=== PATIENT | male | born 1965 | race Caucasian/White ===

== ENCOUNTER 2017-01-22 18:30 | Inpatient (IN) | payer MEDICAID ==
--- NOTE | 2017-01-22 18:30 | PCM.SN ---
- Free Text/Narrative Note: 51 year old male, prisoner at the [facility]. Arrived in [place] today for court/legal matters. 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 Underwent resection and reanastomosis. Had RT and CTX. Now has had several episodes of SBO, most recent episode 2 weeks ago. Hospitalized in [place]. Had NGT decompression. Travelled from [place] to [place] today, arriving at 1432. When supper was brought to him at 1720, he told officer that he couldn't eat because "I have a bowel obstruction." Will be transported to hospital for further evaluation.
[2017-01-22] MEDS ORDERED: Acetaminophen 650 MG Supp RECTAL PRN (19:26)
[2017-01-22] MEDS ORDERED: Sodium Chloride 0.9% 10 ML Syringe FLUSH PRN (19:26)
[2017-01-22] MEDS ORDERED: Bisacodyl 10 MG Supp RECTAL PRN (19:26)
[2017-01-22] MEDS ORDERED: BENZOIN TINCTURE TOP ONE (19:45)
[2017-01-22] MEDS ORDERED: HYDROmorphone 1 MG/ML Syringe IM ONE (21:00)
[2017-01-22] MEDS: D5 1/2 NS w/ 20 mEq/L KCl 1,000 ML IV SCH (21:15)
[2017-01-22] MEDS: Ondansetron 4 MG/2 ML SDV IV PRN (21:30)
[2017-01-22 21:46] LABS: CHLORIDE,CL 103 mmol/L (101-111); SODIUM,NA 138 mmol/L (135-145)
[2017-01-22] MEDS: HYDROmorphone 1 MG/ML Syringe IVPUSH PRN (21:58)
[2017-01-23] MEDS: Lidocaine 2% Jelly 5 ML Tube MUCMEM SCH ×4 (00:06→07:34)
[2017-01-23] MEDS: HYDROmorphone 1 MG/ML Syringe IVPUSH PRN ×4 (01:03→10:47)
--- NOTE | 2017-01-23 02:40 | HP ---
CHIEF COMPLAINT: Abdominal pain. REASON FOR ADMISSION: Recurrent small-bowel obstruction. HISTORY OF PRESENT ILLNESS: Mr. Wilson is a 51-year-old gentleman, who is an inmate at the [facility] in [place]. He was brought to [place] today for a court hearing. He arrived at about 14:30 in the afternoon, and at about 17:30, when the evening meal was brought, he stated that he could not eat because "I have a bowel obstruction." Mr. Wilson stated that he had been scheduled to see the medical stenographer this morning in [place], but his transport team arrived to bring him to [place] before he could be seen. He apparently did not tell them before he left that he was not feeling well. PAST MEDICAL HISTORY: Significant for the fact that in October 2015, he was noted to have developed anemia and was quite iron deficient. A colonoscopy was scheduled. This was performed in [place]. He was found to have colorectal cancer, and biopsy showed it to be an adenocarcinoma. He underwent surgical resection with reanastomosis. This was followed by radiation and chemotherapy. He now has had at least several episodes of what appeared to be partial small-bowel obstructions. His most recent admission was to [facility] in [place] for a small-bowel obstruction 2 weeks ago. PAST MEDICAL HISTORY: Colorectal adenocarcinoma, 10/18/2015. Degenerative joint disease of the lumbar spine. Hypertension, on no meds at this time. Chronic bilateral low back pain with occasional left-sided sciatica, constipation, COPD, dyslipidemia, obstructive sleep apnea. In the past, he was diagnosed with diabetes, but he is on no medications at this time and blood sugars are normal. PAST SURGICAL HISTORY: Umbilical hernia repair as an adult. Colonoscopy with biopsy in October 2015, which led to the diagnosis of adenocarcinoma. Colon resection on 11/19/2015; a low-anterior rectal sigmoid resection was performed with a diverting loop ileostomy. Three out of 17 lymph nodes were positive, and he was told his cancer was a stage IIIB. He underwent subsequent radiation and chemotherapy. Repeat diagnostic colonoscopy was performed on 06/03/2016. An upper endoscopy was performed at the same time. IMMUNIZATION HISTORY: Up-to-date. SOCIAL HISTORY: He grew up in the [facility]. 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 He is single, has no children. He smoked until recently, 2 packs of cigarettes a day for 20 years. He stated alcohol was never a problem for him. He did no service. FAMILY HISTORY: His mother had breast cancer and has survived more than 10 years. Father at the age of 75 of myocardial infarction. He also had diabetes. He has 1 brother and 1 sister. The brother also had coronary artery disease and had a 4-vessel CABG, but is said to be doing well. REVIEW OF SYSTEMS: Last small-bowel obstruction was 2 weeks ago, and he was hospitalized at [facility]. His last bowel movement was yesterday, January 21. He said that these symptoms began last night before he came to [place]. His abdomen is distended. He is not passing gas. He has slight nausea, but no vomiting. No blood by mouth or rectum. No hematuria. No recent changes in vision or hearing. No swallowing difficulties. No chest pain, shortness of breath, orthopnea. No recent falls or injuries. CURRENT MEDICATIONS: 1. Xarelto 20 mg daily. 2. Vitamin D 50,000 units once a week. 3. Pramipexole 1 mg at bedtime. 4. Pantoprazole 40 mg daily. 5. Senna 8.6 mg one tablet every morning as needed. 6. Loratadine 10 mg daily as needed. 7. Simethicone 80 mg chewable tablets 3 times a day as needed. 8. Acetaminophen 650 mg every 6 hours p.r.n. for pain. ALLERGIES: Fenofibrate. PHYSICAL EXAMINATION: General: He is a pleasant gentleman, accompanied by a housing officer. He is cooperative, articulate and garrulous. He obviously is uncomfortable because of the abdominal pain, but is in no acute distress and is able to maintain his composure throughout the interview and exam, although he obviously became more uncomfortable as time went by. Vital Signs: Blood pressure 142/79 on the left, 132/86 on the right, pulse 75 and regular, respiratory rate 20, oxygen saturation 97% on room air, temperature 98.9, height 6 feet 4 inches, weight 271 pounds 14 ounces. HEENT: Unremarkable. ENT is clear. Sclerae are nonicteric. Mouth shows moist mucous membranes. Neck: No JVDs or bruits: Chest: Shows clear but diminished bilateral breath sounds. Heart: Shows regular rate and rhythm. Abdomen: Distended with completely absent bowel sounds. Extremities: Show the calves to be soft and nontender. There is trace anterior tibial edema. Neurological: There are no gross motor or sensory deficits. LABORATORY DATA: CBC, comprehensive panel, amylase and lipase ordered. White count is 7.5 with 84% neutrophils. Hemoglobin and hematocrit were normal at 16 and 46 with an MCV of 87. Electrolytes were normal. BUN and creatinine were 14 and 0.6 with a GFR of more than 60. LFTs within normal limits, and amylase and lipase were normal. A noncontrast CT scan of the abdomen and pelvis was performed. The lower thorax was unremarkable. The visualized organs of the abdomen and pelvis were unremarkable. There is mild dilatation of the stomach with fluid, and there were multiple proximal dilated small bowel loops reaching 3.8 cm in caliber. The distal small bowel is fluid-filled, slightly less distended than the proximal loops. There are gas and stool present within the colon. Anastomotic sutures are seen on the right side of the abdomen. Appendix was normal. IMPRESSION: A dilated small bowel which could represent ileus or an early or partial small bowel obstruction. Probable recurrent small bowel obstruction in this gentleman with a history of colon cancer with recurrent small bowel obstructions. The most recent of which was 2 weeks ago. PLAN: Mr. Wilson was made a direct admission as an acute inpatient. He will be kept n.p.o. except for ice chips. IV fluids were started with D5 half normal saline with 20 mEq of KCl per L. Orders were written for rectal Tylenol. He will receive Dilaudid 1 mg IV push every 3 hours p.r.n. There was a delay in getting IV access, and he was given 1 mg IM Dilaudid while he awaited. Orders were written also for ondansetron 4 mg IV every 4 hours p.r.n. for nausea, vomiting. PAOLO hose will be applied. Enoxaparin will be started tomorrow for VTE prophylaxis. After he was admitted to the floor, a nasogastric tube was passed, and we did get back about 500 mL of fluid which has since slowed down. We are going to see if the NG tube has to be repositioned later. He will be accompanied overnight by a housing officer. We will speak to the medical office at the [facility] tomorrow morning to decide how they would like to proceed. CONDITION AT THE TIME OF ADMISSION: Hemodynamically and neurologically stable. CODE STATUS: Full code. MD Chayito Physican for [facility] /[id number] MTDD
[2017-01-23] MEDS: Ondansetron 4 MG/2 ML SDV IV PRN ×2 (04:34→10:59)
[2017-01-23 06:46] VITALS: BP 119/80
[2017-01-23] MEDS: D5 1/2 NS w/ 20 mEq/L KCl 1,000 ML IV SCH (10:27)
[2017-01-23] MEDS ORDERED: Enoxaparin 40 MG/0.4 ML Syringe SUBCUT ONE (11:32)
--- NOTE | 2017-02-07 02:48 | DISCH ---
DISCHARGE DIAGNOSES: 1. Recurrent small bowel obstruction. 2. History of colorectal adenocarcinoma, in October 2015. 3. Hypertension, on no medications at this time. 4. Degenerative joint disease of lumbar spine. 5. Chronic low back pain. 6. Constipation. 7. Chronic obstructive pulmonary disease. 8. Dyslipidemia. 9. Obstructive sleep apnea by history. 10.Type 2 diabetes by history, diet controlled at this time. BRIEF HISTORY OF PRESENT ILLNESS: Mr. Wilson is a 51-year-old gentleman, who is an inmate at the [facility] in [place]. He was brought to [place] on the afternoon of [address] hearing. He arrived at approximately 1430 hours in the afternoon and was feeling well, but by 1730 hours when the evening meal was brought, he stated he could not eat because "I have a bowel obstruction." Mr. Wilson stated that he had been scheduled to see the medical support assistant at the [facility] that morning, but the transport team arrived to bring him to [place] before he could be seen, and he apparently did not inform them before he left that he was not feeling well. He was seen and examined and it was felt that he should be admitted for a possible recurrent small bowel obstruction. A CT scan of the abdomen and pelvis was subsequently obtained and showed changes consistent with either an early ileus or a partial small-bowel obstruction. He is admitted for further care. PERTINENT LABORATORIES AND X-RAYS: CBC at time of admission showed normal white count of 7.5, hemoglobin and hematocrit were 16 and 50, and platelets were 150,000. Chemistry showed normal electrolytes, BUN and creatinine of 14 and 0.6 with a GFR of more than 60. LFTs are within normal limits. Amylase and lipase were normal. A non-contrast CT scan of the abdomen and pelvis was obtained. Visualized portions of the lower lung were unremarkable. Visualized organs in the abdomen were unremarkable except as follows. There was mild dilatation of the stomach with fluid. There were multiple proximal dilated small bowel loops reaching 3.8 cm in caliber. The distal small bowel was fluid-filled. There was gas and stool within the colon. The anastomotic sutures on the right side of the abdomen were seen. The appendix was normal. The impression of the CAT scan was that of dilated small bowel, which could represent an ileus or an early/ partial small bowel obstruction. HOSPITAL COURSE: Mr. Wilson was admitted for management of his recurrent small bowel obstruction. In October 2015, he was diagnosed with colorectal cancer. He underwent resection of the colon with reanastomosis. This was followed by radiation and chemotherapy, and since that time, he has had several episodes of what appeared to be partial small-bowel obstructions. It is felt that he probably has a stricture at the site of the anastomosis, and apparently, there has been some discussion regarding possible future surgery to remove this area of the bowel. He was kept n.p.o. IV fluids were started with D5 half-normal saline with potassium. IV Dilaudid was used for pain control, 1 mg every 3 hours p.r.n. Enoxaparin was used for VTE prophylaxis. We discussed the placement of an NG tube with Mr. Wilson. He has had these before, and he understood the need for it. He allowed us to place an NG tube. Initially, we got back about 500 mL of fluid, and overnight, there was 200 mL out. We spoke with the medical surgery nurse at the [facility], Dr. Deniz Pedraza. He is very familiar with Mr. Wilson. We discussed the presentation, the clinical and radiographic findings, and his hospital course. It was felt that at this time, he was hemodynamically stable, and he could be returned to [place]. Therefore, the NG tube was removed. Mr. Wilson was kept n.p.o., although he wanted to take fluids with him for the ride back. We deferred on this because we did not want him to develop any symptoms or problems on the trip back to [place]. The officer was informed that he is not to eat or drink on the trip back. At the time of discharge, he was in stable condition. There was no vomiting and no abdominal pain. The abdomen was much less distended than it had been before and it was felt he was safe to be discharged. PHYSICAL EXAMINATION: Vital Signs: Blood pressure was 119/80, pulse 76 and regular, respiratory rate 20 and nonlabored, and oxygen saturation 95% on room air. He was afebrile. HEENT: Unremarkable. ENT was clear. Mouth showed moist mucous membranes. Chest: Clear but diminished bilateral breath sounds. Heart: Regular rate and rhythm. Abdomen: Obese, but softer than at the time of admission with hypoactive bowel sounds. There was no tenderness on palpation of the abdomen. Extremities: Examination of the legs showed the calves to be soft and nontender, and there was no edema after resting overnight. Neurologic: There were no gross motor or sensory deficits. IMPRESSION: A 51-year-old gentleman with history of colorectal cancer with resection followed by several episodes of recurrent small bowel obstruction. PLAN: The patient is hemodynamically stable. His NG tube was removed. He is being kept n.p.o., and he will be transported by the [facility]'s Department back to the [facility] in stable condition. [facility] /[id number] MARY
== END 2017-01-23 11:50 | disposition other institution (70) | DRG 390 ==
LOC: DL.ED 18:30 → UNDOADMIN 19:04 → DL.MS 19:04
PROVIDERS: ADMIT Internal Medicine; ATTEND Internal Medicine
DX: K56.60 Unspecified intestinal obstruction (principal); M47.896 Other spondylosis, lumbar region; I10 Essential (primary) hypertension; J44.9 Chronic obstructive pulmonary disease, unspecified; G47.33 Obstructive sleep apnea (adult) (pediatric); E11.9 Type 2 diabetes mellitus without complications; E78.5 Hyperlipidemia, unspecified; D64.9 Anemia, unspecified; E61.1 Iron deficiency; Z85.038 Personal history of other malignant neoplasm of large intestine; Z87.891 Personal history of nicotine dependence; Z79.01 Long term (current) use of anticoagulants; K56.7 Ileus, unspecified; Z79.899 Other long term (current) drug therapy
CPT/HCPCS: 36415; 74176; 80053; 82150; 83690; 85025; 99285; J1170; J1650; J2405; J3480